=== PATIENT | male | born 1990 | race Caucasian/White ===

== ENCOUNTER 2022-02-07 13:09 | Emergency (ER) | payer OTHER, SELFPAY ==
[2022-02-07] VITALS (7 sets, daily range): BP systolic 101–155; BP diastolic 62–101; PULSE 69–115; RESP 16–20; TEMP 36.8; O2SAT 94–97; BMI 32.5
--- NOTE | 2022-02-07 13:09 | ECG_ITS ---
APPROVED REPORT Exam: Resting ECG HR:111 bpm ECG Measurements Heart Rate 111 AXES AL 182 P 20 QRSd 108 QRS 32 QT 310 T 8 QTc 376 Conclusion SINUS TACHYCARDIA INCOMPLETE RIGHT BUNDLE BRANCH BLOCK [90+ ms QRS DURATION, TERMINAL R IN V1/V2, 40+ ms S IN I/aVL/V4/V5/V6] ABNORMAL RHYTHM ECG UNCONFIRMED REPORT Electronically signed by : Jovi Villa MD 02/07/2022 17:10:23
--- NOTE | 2022-02-07 13:23 | HMH.EDGENADL ---
ED Disposition Clinical Impression: Atypical chest pain Disposition: Home, Self-Care Condition on Discharge: Good Instructions: DI for Atypical Chest Pain Additional Instructions: Call Dr. Davenport, cardiology, on Thursday for follow-up appointment. Additional instructions for CHEST PAIN: Return immediately if worsening chest pain, vomiting, shortness of breath, fever, coughing of blood. Referrals: Provider,MD Gurdeep [Primary Care Provider] - Chandana Davenport MD [Staff Physician] - - Critical Care Critical Care Time: No Attestation: On , the high probability of a clinically significant, sudden or life threatening deterioration of the following system(s) required my full and direct attention, intervention and personal management. The time I documented below is in addition to time spent performing reported procedures but includes the following listed in this critical care notation. Medical Decision Making - Medical Records Medical records reviewed: Yes: I reviewed the patient's medical records. MR Comment: Emergency department record from [facility] 02/03/2022 reviewed. Gallbladder ultrasound results reviewed, negative. - Mike Inquiry Pt receiving controlled substance: No Vital Signs: 02/07/22 13:12 02/07/22 13:30 02/07/22 14:00 Temperature 98.3 F Temperature Source Oral Pulse Rate 85 74 Pulse Rate [Apical] 115 H Respiratory Rate 18 Blood Pressure 135/90 126/79 Blood Pressure [Right Arm] 155/101 H Blood Pressure Mean 106 94 Blood Pressure Mean [Right Arm] 119 Blood Pressure Source [Right Arm] Automatic Cuff Blood Pressure Position [Right Arm] Sitting 02 Sat by Pulse Oximetry 96 94 L 96 Oxygen Delivery Method Room Air 02/07/22 14:31 02/07/22 15:00 02/07/22 15:30 Temperature Temperature Source Pulse Rate 85 71 69 Pulse Rate [Apical] Respiratory Rate 20 16 18 Blood Pressure 110/73 101/62 L 119/89 Blood Pressure [Right Arm] Blood Pressure Mean 85 75 99 Blood Pressure Mean [Right Arm] Blood Pressure Source [Right Arm] Blood Pressure Position [Right Arm] 02 Sat by Pulse Oximetry 95 95 97 Oxygen Delivery Method Room Air Room Air Room Air 02/07/22 16:42 Temperature 98.3 F Temperature Source Pulse Rate 86 Pulse Rate [Apical] Respiratory Rate 16 Blood Pressure 111/75 Blood Pressure [Right Arm] Blood Pressure Mean Blood Pressure Mean [Right Arm] Blood Pressure Source [Right Arm] Blood Pressure Position [Right Arm] 02 Sat by Pulse Oximetry Oxygen Delivery Method Room Air - Lab Data Lab Results 02/07/22 13:17: WBC 6.9, RBC 6.38 H, Hgb 17.5, Hct 52.1 H, MCV 81.6, MCH 27.4, MCHC 33.6, RDW 13.3, Plt Count 349, MPV 7.0 L, Neut % (Auto) 66.3, Lymph % (Auto) 25.3, [place] % (Auto) 5.1, Eos % (Auto) 3.1, Baso % (Auto) 0.2, Neut # (Auto) 4.6, Lymph # (Auto) 1.7, [place] # (Auto) 0.4, Eos # (Auto) 0.2, Baso # (Auto) 0.0 02/07/22 13:17: Sodium 141, Potassium 3.9, Chloride 103, Carbon Dioxide 29, Anion Gap 12.9, BUN 19, Creatinine 0.80, Estimated Creat Clear 210, Estimated GFR 114, Est GFR ( Amer) 138, Glucose 116 H, Calcium 9.8, Troponin I < 0.01 02/07/22 16:30: Troponin I < 0.01 Result diagrams: 02/07/22 13:17 02/07/22 13:17 Orders (Tests/Meds): ED MEDICATIONS Discontinued Medications Generic Name Dose Route Start Last Admin Trade Name Justin PRN Reason Stop Dose Admin Aspirin 324 mg 02/07/22 13:24 02/07/22 13:26 Aspirin 81mg Chewable Tablet PO 02/07/22 13:25 324 mg ONCE ONE Administration Diphenhydramine HCl 50 mg 02/07/22 15:25 02/07/22 15:28 Diphenhydramine 50mg/Ml Vial IV 02/07/22 15:26 50 mg ONCE ONE Administration Iopamidol 70 ml 02/07/22 15:13 02/07/22 15:14 Iopamidol-370 (76%);100ml Bottle IV 02/07/22 15:14 70 ml ONCE ONE Administration Methylprednisolone Sodium Succinate 125 mg 02/07/22 15:25 02/07/22 15:28 Methylprednisolone Sod Succ 125mg Vial IV 02/07/22 15:26 125
--- NOTE | 2022-02-07 13:24 | XR_ITS ---
FINAL REPORT CLINICAL HISTORY: chest pain FINDINGS: A single portable view of the chest was obtained. The heart size and pulmonary vascularity are within normal limits. The mediastinum is within normal limits. No acute pulmonary abnormality is identified. The bony thorax is intact. IMPRESSION: No active cardiopulmonary disease. Reviewed, Interpreted and Dictated by Kodak Hyman III, MD Transcribed by Nazanin Somers Authenticated and [facility]
[2022-02-07 13:32] LABS: Basophils % 0.2 % (0.1-2.0); Eosinophils # 0.2 K/mm3 (0.0-0.4); Eosinophils % 3.1 % (0.1-12.0); Hematocrit 52.1 % (42.0-52.0); Hemoglobin 17.5 g/dL (14.1-18.0); Lymphocytes # 1.7 K/mm3 (0.7-4.5); Lymphocytes % 25.3 % (10-50); Mean Corpuscular HGB Conc 33.6 g/dL (31.8-35.4); Mean Corpuscular Hemoglobin 27.4 pg (27.0-31.2); Mean Corpuscular Volume 81.6 fl (80-94); Monocytes # 0.4 K/mm3 (0.1-1.0); Monocytes % 5.1 % (1.7-9.3); Neutrophils # 4.6 K/mm3 (1.8-7.8); Neutrophils % 66.3 % (37.0-80.0); Platelet Count 349 K/mm3 (142-424); Red Blood Count 6.38 M/mm3 (4.60-6.20); Red Cell Distribution Width 13.3 % (11.5-17.5); White Blood Count 6.9 K/mm3 (4.8-10.8)
[2022-02-07 13:36] LABS: Anion Gap 12.9 mEq/L (5-15); Blood Urea Nitrogen 19 mg/dl (9-20); Calcium 9.8 mg/dl (8.4-10.2); Carbon Dioxide 29 mmol/L (22.0-30.0); Chloride 103 mmol/L (98-107); Creatinine Clearance Estimated 210 mL/min (50-200); Estimated Glomerular Filt Rate 114 ml/min (>60); GFR (African American) 138 ML/MIN (>60); Glucose 116 mg/dl (74-100); Potassium 3.9 mmoL/L (3.5-5.1); Sodium 141 mmol/L (136-145)
[2022-02-07 13:54] LABS: Troponin I < 0.01 ng/ml (0.00-0.034)
--- NOTE | 2022-02-07 14:14 | PC.NURSE ---
called [facility] for records; faxed request @[phone]
--- NOTE | 2022-02-07 14:22 | PC.NURSE ---
records for patient @ [phone]
--- NOTE | 2022-02-07 14:35 | PC.NURSE ---
entered room to check on pt, ER MD at BS evaluating pt.
--- NOTE | 2022-02-07 14:52 | CT_ITS ---
FINAL REPORT CLINICAL HISTORY: chest pain, soa FINDINGS: Thin section axial CT images of the chest were obtained with contrast. 3D reformatted images were also obtained. This study was performed with techniques to keep radiation doses as low as reasonably achievable (ALARA). Individualized dose reduction techniques using automated exposure control or adjustment of mA and/or kV according to the patient's size were employed. Motion artifact is identified on any of the images. There is no evidence of pulmonary embolism. There is no evidence of thoracic aortic aneurysm or dissection. Fluid is seen anterior to the main pulmonary artery, favor pericardial recess as a variant. There is no evidence of mediastinal or hilar mass or adenopathy. There is no evidence of pulmonary mass or nodule. No localized inflammatory process is seen within the lungs. Limited images of the upper abdomen are unremarkable. IMPRESSION: No evidence of pulmonary embolism. No mass or localized inflammatory process. Reviewed, Interpreted and Dictated by Kodak Hyman III, MD Transcribed by Keshia Allen Authenticated and . [facility]
--- NOTE | 2022-02-07 15:16 | PC.NURSE ---
checked on pt at this time, states no needs at this time. Family at BS. Will continue to monitor. Pt has just recently returned from [facility]
--- NOTE | 2022-02-07 15:25 | PC.NURSE ---
called staff to room, pt reports R eye suddenly began to swell. Pt reports his began watering. pt denies pain or vision changes. Swelling noted to R eye of upper and lower lid. Notified ER MD, ER MD gave verbal orders for soludmedrol 125 mg IV once and Benadryl 50 mg IV once.
[2022-02-07 16:23] LABS: Troponin I < 0.01 ng/ml (0.00-0.034)
--- NOTE | 2022-02-07 16:23 | PC.NURSE ---
lab states approx 2 minutes left on repeat troponin result
--- NOTE | 2022-02-07 16:25 | PC.NURSE ---
pt sleeping at this time, family at BS. Will continue to monitor
== END 2022-02-07 16:42 | disposition home or self-care (01) ==
PROVIDERS: Emergency Provider Emergency Medicine
DX: R06.02 Shortness of breath; Z87.891 Personal history of nicotine dependence; I10 Essential (primary) hypertension; Z88.0 Allergy status to penicillin; R07.89 Other chest pain; Z79.899 Other long term (current) drug therapy
CPT/HCPCS: 71045; 71275; 80048; 84484; 85025; 93005; 96374; 96375; 99284; Q9967

== ENCOUNTER 2022-02-19 09:51 | Emergency (ER) | payer OTHER, SELFPAY ==
[2022-02-19 10:00] VITALS: BP 141/86; PULSE 84; RESP 19; TEMP 36.7; O2SAT 97; BMI 34.9
[2022-02-19 10:24] LABS: Strep Scrn Group A (Rapid) Negative (Negative)
--- NOTE | 2022-02-19 10:29 | HMH.EDUTC ---
[facility] Disposition Clinical Impression: Otitis media Qualifiers: Otitis media type: unspecified Laterality: left Qualified Code(s): H66.92 - Otitis media, unspecified, left ear Disposition: Home, Self-Care Condition on Discharge: Good Instructions: Middle Ear Infection, Azithromycin Additional Instructions: *Monitor Temp, Over the counter Motrin or Tylenol as directed/as needed Tylenol every 4 hours and Motrin every 6 hours (as long as your family doctor has told you that you can take it) for fever or pain. and straight to ER if unable to lower temp less than 101.0 after medication given *Warm salt water gargles may help to soothe the throat *Throat Lozenges *Warm fluids like tea with honey may help to soothe the throat *Sleep elevated *Humidifier/Vaporizer Take medication as prescribed Your throat swab was sent for culture. Those results are typically sent to your primary care. Be sure to follow up in 2-3 days with your family doctor/primary care physician if no improvement so they can review those result and treat if necessary. If you don?t have a primary care doctor, I recommend you get one but in the mean time, you will have to return to a walk in clinic Follow up IMMEDIATELY for new or worsening symptoms or no Noticeable improvement over the next 48-72 hours. 911 for difficulty breathing or swallowing Prescriptions: predniSONE [Deltasone 10mg tablet] 10 mg PO BID 5 Days #10 tab Transmission Status: Pending to [id number] Azithromycin [Z-Roosevelt 250mg Tab] 250 mg PO DIRECTED #6 tab Transmission Status: Pending to [id number] Referrals: Provider,Referral, [Primary Care Provider] - As needed Time of Disposition: 10:38 Medical Decision Making - Mike Inquiry Pt receiving controlled substance: No Mike was queried for this patient: No Vital Signs: 02/19/22 10:00 Temperature 98.1 F Temperature Source Oral Pulse Rate [Right Brachial] 84 Respiratory Rate 19 Blood Pressure [Right Arm] 141/86 H Blood Pressure Mean [Right Arm] 104 Blood Pressure Source [Right Arm] Automatic Cuff Blood Pressure Position [Right Arm] Sitting 02 Sat by Pulse Oximetry 97 Oxygen Delivery Method Room Air - Lab Data Lab results reviewed: Yes: I reviewed the patient's lab results. Lab Results 02/19/22 10:08: Group A Strep Rapid Negative Orders (Tests/Meds): ORDERS Category Date Time Status Strep Screen Confirmation Stat Micro 02/19/22 10:08 Received Medical Decision Narrative: Patient states that he has taken azithromycin and prednisone before [facility] HPI - General Stated complaint: lumps in neck, sore throat Time Seen by Provider: 02/19/22 10:15 Mode of Arrival: Ambulatory Source of Information: Patient Limitations: No Limitations Description of Symptoms (Recalled from Triage Doc. by RN): PATIENT C/O SWELLING AND SORENESS OF THROAT AND SWOLLEN LYMPH NODES X 2 TO NECK HEENT Symptoms (Recalled from RN notes): Yes Resp Symptoms (Recalled from RN notes): No Skin Symptoms (Recalled from RN notes): No MS Symptoms (Recalled from RN notes): No Functional Status (Recalled from RN notes): WNL - History of Present Illness Provider Complaint: Patient states that he has been having red, swollen throat, pain in his ears and swelling in several lymph nodes on the left side of his neck below his ear States that today it was hurting worse so he came in to get checked out - Related Data Previous Rx's Medication Instructions Recorded Azithromycin [Z-Roosevelt 250mg Tab] 250 mg PO DIRECTED #6 tab 02/19/22 predniSONE [Deltasone 10mg tablet] 10 mg PO BID 5 Days #10 tab 02/19/22 Allergies Allergy/AdvReac Type Severity Reaction Status Date / Time Penicillins Allergy Verified 02/07/22 13:24 - Worker's Comp Is this a Worker's Comp case?: No [facility] History - Hepatitis A Screen Attestation statement:: This patient has been screened for Hepatitis A risk factors. I have reviewe
[2022-02-19 10:40] VITALS: BP 141/86; PULSE 84; RESP 19; TEMP 36.7; O2SAT 97
== END 2022-02-19 10:45 | disposition home or self-care (01) ==
PROVIDERS: Emergency Provider Nurse Practitioner
DX: H66.92 Otitis media, unspecified, left ear (principal); J02.9 Acute pharyngitis, unspecified
CPT/HCPCS: 87430